=== PATIENT | male | born 1965 | race Native Hawaiian/Other Pacific Islander ===

== ENCOUNTER 2016-07-12 14:23 | Observation (INO) | payer OTHER ==
[~2016-07-12] VITALS: Ht 188 cm; Wt 61.7 kg
[2016-07-12 16:00] VITALS: BP 118/70; TEMP 98.2
[2016-07-12 16:26] LABS: PLATELET COUNT 105 K/uL (142-355)
[2016-07-12 16:41] LABS: POTASSIUM 3.7 mmol/L (3.6-5.2); SODIUM 133 mmol/L (136-145)
[2016-07-12 17:00] VITALS: BP 138/63; TEMP 97.8; Ht 188 cm; Wt 61.7 kg
[2016-07-12 20:00] VITALS: BP 108/65; TEMP 97.9
[2016-07-13] VITALS: BP 136/71; TEMP 98.4
[2016-07-13 04:00] VITALS: BP 114/66; TEMP 98
[2016-07-13 05:55] LABS: PLATELET COUNT 84 K/uL (142-355)
[2016-07-13 05:59] LABS: SODIUM 133 mmol/L (136-145)
[2016-07-13 06:28] VITALS: BP 114/66; TEMP 98
[2016-07-13 12:00] VITALS: BP 135/69; TEMP 97.8
[2016-07-13 16:00] VITALS: BP 142/70; TEMP 98
[2016-07-13 19:11] LABS: POTASSIUM 3.3 mmol/L (3.6-5.2)
[2016-07-13 20:00] VITALS: BP 112/71; TEMP 97.8
[2016-07-14] VITALS: BP 115/73; TEMP 98
[2016-07-14 04:00] VITALS: BP 113/75; TEMP 98.7
[2016-07-14 04:58] LABS: PLATELET COUNT 70 K/uL (142-355)
[2016-07-14 05:06] LABS: POTASSIUM 3.9 mmol/L (3.6-5.2); SODIUM 132 mmol/L (136-145)
[2016-07-14 08:00] VITALS: BP 125/81; TEMP 97.7
--- NOTE | 2016-07-14 15:39 | NUR ---
1535-PT COMPLIANS OF IV HURTING. IV SITE FLUSHES WELL WITH NO SWELLING AND BLOOD ASPIRATED INTO EXTENSION. INFORMED PT THAT IV IS OK BUT HE WANTS IT OUT. SCRIBE NOTIFIED AND STATES OK TO GO AHEAD AND LET HIM GO HOME. IV SITE D/C'D WITH TIP INTACT AND SITE CARE DONE. D/C INSTRUCTIONS GIVEN TO PT AND HE VERBALIZES UNDERSTANDING. PT AMBULATORY OUT WITH NAD. PT REFUSES W/C
== END 2016-07-14 15:39 | disposition home or self-care (01) ==
LOC: MED/SURG 14:23
PROVIDERS: Internal Medicine; ADMIT Nurse Practitioner
DX: K52.89 Other specified noninfective gastroenteritis and colitis (principal); R11.2 Nausea with vomiting, unspecified; A08.8 Other specified intestinal infections; E86.0 Dehydration; Z72.0 Tobacco use; F10.10 Alcohol abuse, uncomplicated; E87.6 Hypokalemia; E83.42 Hypomagnesemia; R00.0 Tachycardia, unspecified; E87.1 Hypo-osmolality and hyponatremia; D47.3 Essential (hemorrhagic) thrombocythemia
CPT/HCPCS: 36415; 80053; 80074; 81000; 82150; 83690; 83735; 84132; 85027; 85610; 87045; 87205; 87328; 87329; 87493; 87798; 87899; 96365; 96366; 96367; 96375; 99220; G0378; G0379; J2060; J3475; J3480; J3490

== ENCOUNTER 2016-07-21 10:13 | Outpatient (CLI) | payer OTHER | END 2016-07-21 19:08 | disposition home or self-care (01) | LOC: RAD 10:13 | DX: R05 Cough (principal); R06.02 Shortness of breath ==

== ENCOUNTER 2016-09-13 19:27 | Emergency (ER) | payer OTHER ==
[~2016-09-13] VITALS: Ht 188 cm; Wt 61.2 kg
[2016-09-13 22:09] LABS: PLATELET COUNT 148 K/uL (142-355)
[2016-09-13 22:17] LABS: POTASSIUM 3.6 mmol/L (3.6-5.2); SODIUM 133 mmol/L (136-145)
[2016-09-14 04:00] VITALS: TEMP 98.7
[2016-09-14 06:45] VITALS: BP 144/84
== END 2016-09-14 14:27 | disposition home or self-care (01) ==
LOC: ED 19:27
PROVIDERS: Specialist
DX: F10.20 Alcohol dependence, uncomplicated (principal); E46 Unspecified protein-calorie malnutrition
CPT/HCPCS: 36415; 80053; 80307; 80320; 81000; 83735; 84100; 85027; 96365; 99284; G0479; J3411; J3475; J3490

== ENCOUNTER 2016-10-22 07:29 | Observation (INO) | payer OTHER ==
[2016-10-22] VITALS (7 sets, daily range): BP systolic 102–139; BP diastolic 70–89; TEMP 97.8–98.2; Ht 188 cm; Wt 60.8 kg
[~2016-10-22] VITALS: Ht 188 cm; Wt 60.8 kg
[2016-10-22 10:45] LABS: PLATELET COUNT 249 K/uL (142-355)
[2016-10-22 10:55] LABS: POTASSIUM 4.1 mmol/L (3.6-5.2); SODIUM 134 mmol/L (136-145)
[2016-10-23] VITALS: BP 108/66; TEMP 98.7
[2016-10-23 04:00] VITALS: BP 112/75; TEMP 98.5
[2016-10-23 05:39] LABS: PLATELET COUNT 243 K/uL (142-355)
[2016-10-23 05:48] LABS: SODIUM 134 mmol/L (136-145)
[2016-10-23 08:00] VITALS: BP 97/62; TEMP 98
[2016-10-23 12:00] VITALS: BP 109/63; TEMP 97.8
[2016-10-23 16:00] VITALS: BP 106/64; TEMP 98
[2016-10-23 20:00] VITALS: BP 104/60; TEMP 98.2
[2016-10-24] VITALS: BP 103/65; TEMP 97.8
[2016-10-24 04:00] VITALS: BP 106/60; TEMP 98.7
[2016-10-24 05:34] LABS: PLATELET COUNT 234 K/uL (142-355)
[2016-10-24 05:50] LABS: POTASSIUM 4.3 mmol/L (3.6-5.2); SODIUM 135 mmol/L (136-145)
[2016-10-24 08:00] VITALS: BP 108/63; TEMP 98
[2016-10-24 12:00] VITALS: BP 108/69; TEMP 97.8
== END 2016-10-24 17:00 | disposition home or self-care (01) ==
LOC: ED 07:29 → MED/SURG 11:24
PROVIDERS: Emergency Medicine; ADMIT Specialist
DX: J44.1 Chronic obstructive pulmonary disease with (acute) exacerbation (principal); Z72.0 Tobacco use; F10.239 Alcohol dependence with withdrawal, unspecified; E83.42 Hypomagnesemia; R73.9 Hyperglycemia, unspecified
CPT/HCPCS: 36415; 36600; 80048; 82805; 83735; 85027; 94640; 94664; 94760; 96365; 96366; 96367; 96374; 96375; 99220; 99284; G0378; J2930

== ENCOUNTER 2016-12-02 06:44 | Emergency (ER) | payer OTHER ==
[~2016-12-02] VITALS: Ht 188 cm; Wt 66.2 kg
[2016-12-02 07:36] LABS: PLATELET COUNT 283 K/uL (142-355)
[2016-12-02 07:45] LABS: POTASSIUM 4.2 mmol/L (3.6-5.2); SODIUM 138 mmol/L (136-145)
[2016-12-02 08:26] VITALS: BP 120/67; TEMP 98.4
== END 2016-12-02 08:42 | disposition home or self-care (01) ==
LOC: ED 06:44
PROVIDERS: Specialist
DX: J44.1 Chronic obstructive pulmonary disease with (acute) exacerbation (principal)
CPT/HCPCS: 36415; 80048; 85027; 96374; 99283; J2930

== ENCOUNTER 2017-02-09 18:24 | Emergency (ER) | payer OTHER ==
[~2017-02-09] VITALS: Ht 188 cm; Wt 64.4 kg
[2017-02-09 18:47] LABS: PLATELET COUNT 247 K/uL (142-355)
[2017-02-09 18:59] LABS: POTASSIUM 4.1 mmol/L (3.6-5.2)
[2017-02-09 20:10] VITALS: BP 120/75; TEMP 97.9
== END 2017-02-09 20:10 | disposition home or self-care (01) ==
LOC: ED 18:24
DX: R06.00 Dyspnea, unspecified (principal); J44.1 Chronic obstructive pulmonary disease with (acute) exacerbation; J98.01 Acute bronchospasm
CPT/HCPCS: 80053; 85027; 93005; 94640; 94664; 99284

== ENCOUNTER 2019-02-13 08:23 | Outpatient (CLI) | payer OTHER ==
[2019-02-13] MEDS ORDERED: ALBUTEROL1.25 MG/3 INH (08:46)
[2019-02-13] MEDS ORDERED: PROAIR HFA INH (08:47)
== END 2019-02-13 08:25 | disposition short-term general hospital (02) ==
LOC: AMB 08:23
DX: R06.02 Shortness of breath (principal); R53.1 Weakness; E86.0 Dehydration; R63.0 Anorexia
CPT/HCPCS: A0425; A0429

== ENCOUNTER 2019-02-13 08:28 | Emergency (ER) | payer OTHER ==
[~2019-02-13] VITALS: Ht 188 cm; Wt 64.4 kg
[2019-02-13 08:28] VITALS: TEMP 97.9
[2019-02-13] MEDS ORDERED: ALBUTEROL1.25 MG/3 INH (08:46)
[2019-02-13] MEDS ORDERED: PROAIR HFA INH (08:47)
[2019-02-13 09:05] LABS: PLATELET COUNT 160 K/uL (142-355)
[2019-02-13 09:34] LABS: POTASSIUM 3.4 mmol/L (3.6-5.2)
[2019-02-13 11:00] VITALS: BP 129/82
== END 2019-02-13 11:00 | disposition home or self-care (01) ==
LOC: ED 08:28
PROVIDERS: Family Medicine
DX: J44.9 Chronic obstructive pulmonary disease, unspecified (principal); R05 Cough; E87.6 Hypokalemia
CPT/HCPCS: 36415; 80053; 85027; 94664; 96374; 99284; J2930

== ENCOUNTER 2019-02-19 08:35 | Emergency (ER) | payer OTHER ==
[~2019-02-19] VITALS: Ht 188 cm; Wt 64.4 kg
[~2019-02-19 08:35] MED LIST: ALBUTEROL1.25 MG/3 INH; PROAIR HFA INH
[2019-02-19 08:38] VITALS: TEMP 98.1
[2019-02-19 08:52] LABS: PLATELET COUNT 114 K/uL (142-355)
[2019-02-19 09:03] LABS: POTASSIUM 3.5 mmol/L (3.6-5.2); SODIUM 132 mmol/L (136-145)
[2019-02-19 12:34] VITALS: BP 137/81
== END 2019-02-19 12:40 | disposition home or self-care (01) ==
LOC: ED 08:35
PROVIDERS: Emergency Medicine
DX: F10.239 Alcohol dependence with withdrawal, unspecified (principal); R94.5 Abnormal results of liver function studies; K21.9 Gastro-esophageal reflux disease without esophagitis; R00.0 Tachycardia, unspecified
CPT/HCPCS: 80053; 80320; 82150; 82550; 83690; 83735; 84484; 85027; 93005; 96360; 96375; 99284; J2405; J3475; J3490

== ENCOUNTER 2019-03-05 07:50 | Observation (INO) | payer OTHER ==
[~2019-03-05] VITALS: Ht 188 cm; Wt 64.0 kg
[2019-03-05] VITALS (9 sets, daily range): BP systolic 116–149; BP diastolic 74–97; TEMP 97.4–98.2; Ht 188 cm; Wt 64.0 kg
[2019-03-05 08:24] LABS: PLATELET COUNT 190 K/uL (142-355)
[2019-03-05 08:28] LABS: POTASSIUM 3.5 mmol/L (3.6-5.2)
[2019-03-06 01:48] LABS: POTASSIUM 3.6 mmol/L (3.6-5.2)
[2019-03-06 04:00] VITALS: BP 144/68; TEMP 97.6
[2019-03-06 08:00] VITALS: BP 113/62; TEMP 97.9
[2019-03-06 12:00] VITALS: BP 110/72; TEMP 98.1
[2019-03-06] MEDS ORDERED: PANTOPRAZOLE 40MG TA PO (15:20)
== END 2019-03-06 16:30 | disposition home or self-care (01) ==
LOC: ED 07:50 → MED/SURG 09:15
PROVIDERS: Emergency Medicine; ADMIT Internal Medicine
DX: R07.89 Other chest pain (principal); E86.0 Dehydration; K86.0 Alcohol-induced chronic pancreatitis; J44.9 Chronic obstructive pulmonary disease, unspecified; K21.9 Gastro-esophageal reflux disease without esophagitis; Z72.0 Tobacco use; E87.8 Other disorders of electrolyte and fluid balance, not elsewhere classified
CPT/HCPCS: 36415; 80048; 80053; 80320; 82150; 82550; 83690; 83735; 83880; 84484; 85027; 93005; 96365; 96366; 96367; 96372; 96375; 99220; 99284; G0378; J1650; J2060; J3411; J3475; J3490; J7120

== ENCOUNTER 2019-10-02 10:37 | Inpatient (IN) | payer OTHER ==
[~2019-10-02] VITALS: Ht 190.5 cm; Wt 62.3 kg
[2019-10-02] VITALS (8 sets, daily range): BP systolic 97–124; BP diastolic 58–94; TEMP 96.8–98.7; Ht 190.5 cm; Wt 62.3 kg
[~2019-10-02 10:37] MED LIST changes: +PANTOPRAZOLE 40MG TA PO
[2019-10-02 11:06] LABS: PLATELET COUNT 99 K/uL (142-355)
[2019-10-02 11:13] LABS: POTASSIUM 2.9 mmol/L (3.6-5.2); SODIUM 130 mmol/L (136-145)
[2019-10-03 00:02] VITALS: BP 103/59; TEMP 97.9
[2019-10-03 03:59] VITALS: BP 105/63; TEMP 98.1
[2019-10-03 06:01] LABS: PLATELET COUNT 50 K/uL (142-355)
[2019-10-03 06:46] LABS: POTASSIUM 3.3 mmol/L (3.6-5.2)
== END 2019-10-03 11:00 | disposition left against medical advice (07) | DRG 894 ==
LOC: ED 10:37 → MED/SURG 15:05
PROVIDERS: Internal Medicine Endocrinology, Diabetes & Metabolism; ADMIT Family Medicine
DX: F10.239 Alcohol dependence with withdrawal, unspecified (principal); E87.1 Hypo-osmolality and hyponatremia; E87.2 Acidosis; N17.9 Acute kidney failure, unspecified; D69.6 Thrombocytopenia, unspecified; E87.6 Hypokalemia; Z72.0 Tobacco use; J44.9 Chronic obstructive pulmonary disease, unspecified; M15.8 Other polyosteoarthritis
CPT/HCPCS: 36415; 80053; 80307; 80320; 81000; 82150; 82550; 83690; 83735; 84484; 85027; 87502; 87651; 93005; 96360; 96365; 96375; 96376; 99284; J1644; J2060; J2560; J3411; J3475; J3490

== ENCOUNTER 2020-03-17 09:01 | Observation (INO) | payer OTHER ==
[2020-03-17] VITALS (7 sets, daily range): BP systolic 121–130; BP diastolic 78–90; TEMP 97.2–99.1; Ht 188 cm; Wt 69.9 kg
[~2020-03-17] VITALS: Ht 188 cm; Wt 69.9 kg
[2020-03-17 09:29] LABS: POTASSIUM 4.1 mmol/L (3.6-5.2); SODIUM 138 mmol/L (136-145)
[2020-03-17 09:47] LABS: PLATELET COUNT 129 K/uL (142-355)
[2020-03-17 10:30] LABS: PARTIAL THROMBOPLASTIN TIME 26.8 SECONDS (24.5-33.6)
[2020-03-17] MEDS ORDERED: MULTI VITAMIN1 TAB PO (13:22)
== END 2020-03-17 21:42 | disposition short-term general hospital (02) ==
LOC: ED 09:01 → MED/SURG 10:30
PROVIDERS: Hospitalist; ADMIT Internal Medicine Endocrinology, Diabetes & Metabolism
DX: I21.4 Non-ST elevation (NSTEMI) myocardial infarction (principal); R07.89 Other chest pain; Z72.0 Tobacco use; F10.229 Alcohol dependence with intoxication, unspecified; Y90.5 Blood alcohol level of 100-119 mg/100 ml
CPT/HCPCS: 80053; 80320; 82550; 83690; 83880; 84484; 85027; 85610; 85730; 93005; 96372; 96374; 96375; 99220; 99284; G0378; J1650; J1885; J1940; J2270; J2920

== ENCOUNTER 2020-06-20 15:42 | Emergency (ER) | payer OTHER ==
[~2020-06-20] VITALS: Ht 188 cm; Wt 63.5 kg
[~2020-06-20 15:42] MED LIST changes: +MULTI VITAMIN1 TAB PO
[2020-06-20 16:59] LABS: PLATELET COUNT 231 K/uL (142-355)
[2020-06-20 17:09] LABS: SODIUM 138 mmol/L (136-145)
[2020-06-20 18:05] VITALS: BP 144/65; TEMP 97.9
== END 2020-06-20 18:05 | disposition home or self-care (01) ==
LOC: ED 15:42
PROVIDERS: Family Medicine
DX: I20.8 Other forms of angina pectoris (principal); Z98.890 Other specified postprocedural states; F17.210 Nicotine dependence, cigarettes, uncomplicated
CPT/HCPCS: 80053; 82550; 83880; 84484; 85027; 93005; 99283

== ENCOUNTER 2020-10-16 17:13 | Observation (INO) | payer OTHER ==
[2020-10-16] VITALS (8 sets, daily range): BP systolic 88–101; BP diastolic 56–65; TEMP 97.7–98; Ht 188 cm; Wt 71.8 kg
[~2020-10-16] VITALS: Ht 188 cm; Wt 71.8 kg
[2020-10-16 17:37] LABS: PLATELET COUNT 239 K/uL (142-355)
[2020-10-16 17:43] LABS: POTASSIUM 3.3 mmol/L (3.6-5.2); SODIUM 136 mmol/L (136-145)
[2020-10-16 17:56] LABS: PARTIAL THROMBOPLASTIN TIME 27.4 SECONDS (24.5-33.6)
[2020-10-17] VITALS (7 sets, daily range): BP systolic 78–102; BP diastolic 42–54; TEMP 97.5–98
[2020-10-17] MEDS ORDERED: ASPIRIN 8181 MG PO (00:10)
[2020-10-17] MEDS ORDERED: CLOP75TA2 PO (00:11)
[2020-10-17] MEDS ORDERED: SPIRONOLACT25 MG PO (00:19)
[2020-10-17] MEDS ORDERED: FURO20TA67 PO (00:20)
[2020-10-17] MEDS ORDERED: FAMO20TA4 PO (00:21)
[2020-10-17] MEDS ORDERED: MAGNESIUM250 M1 PO (00:23)
[2020-10-17] MEDS ORDERED: ROSU10TA PO (00:26)
[2020-10-17 08:51] LABS: PLATELET COUNT 150 K/uL (142-355)
[2020-10-17 08:55] LABS: POTASSIUM 3.9 mmol/L (3.6-5.2)
[2020-10-18 03:46] VITALS: BP 98/42; TEMP 97.6
[2020-10-18 08:00] VITALS: BP 88/46; TEMP 98.2
== END 2020-10-18 12:13 | disposition home or self-care (01) ==
LOC: ED 17:13 → MED/SURG 19:22
PROVIDERS: Hospitalist; ADMIT Internal Medicine Endocrinology, Diabetes & Metabolism; ATTEND Internal Medicine Endocrinology, Diabetes & Metabolism
DX: N17.8 Other acute kidney failure (principal); E86.0 Dehydration; J44.9 Chronic obstructive pulmonary disease, unspecified; K21.9 Gastro-esophageal reflux disease without esophagitis; I25.10 Atherosclerotic heart disease of native coronary artery without angina pectoris; I11.0 Hypertensive heart disease with heart failure; I50.40 Unspecified combined systolic (congestive) and diastolic (congestive) heart failure; I95.89 Other hypotension; R06.09 Other forms of dyspnea; R07.89 Other chest pain
CPT/HCPCS: 36415; 80048; 80053; 82550; 83880; 84484; 85027; 85610; 85730; 87502; 87635; 87651; 93005; 94640; 94664; 94760; 96360; 96365; 96366; 96372; 96374; 96375; 99220; 99284; G0378; J0456; J1650; J2270; J2405; J2930; U0003

== ENCOUNTER 2022-07-29 12:06 | Observation (INO) | payer OTHER ==
[~2022-07-29] VITALS: Ht 190.5 cm; Wt 66.8 kg
[2022-07-29 12:06] VITALS: BP 156/98; TEMP 98.6
[~2022-07-29 12:06] MED LIST changes: +ASPIRIN 8181 MG PO; +CLOP75TA2 PO; +FAMO20TA4 PO; +FURO20TA67 PO; +MAGNESIUM250 M1 PO; +ROSU10TA PO; +SPIRONOLACT25 MG PO
[2022-07-29 12:32] LABS: PLATELET COUNT 159 K/uL (142-355)
[2022-07-29 12:35] LABS: POTASSIUM 3.4 mmol/L (3.6-5.2)
[2022-07-29 12:46] LABS: PARTIAL THROMBOPLASTIN TIME 27.6 SECONDS (24.5-33.6)
[2022-07-29 16:03] VITALS: BP 121/75; TEMP 98; Ht 190.5 cm; Wt 66.8 kg
[2022-07-29 16:06] VITALS: BP 121/75; TEMP 98
[2022-07-29] MEDS ORDERED: CRESTOR20 MG PO (16:55)
[2022-07-29] MEDS ORDERED: PROTONIX20 MG PO (16:55)
[2022-07-29] MEDS ORDERED: METO25TA2 PO (16:56)
[2022-07-29] MEDS ORDERED: LISINOPRIL PO (16:56)
[2022-07-29 20:18] VITALS: BP 128/68; TEMP 97.6
== END 2022-07-30 00:30 | disposition short-term general hospital (02) ==
LOC: ED 12:06 → MED/SURG 14:26
PROVIDERS: ADMIT Emergency Medicine; ATTEND Internal Medicine
DX: I21.4 Non-ST elevation (NSTEMI) myocardial infarction (principal); J44.1 Chronic obstructive pulmonary disease with (acute) exacerbation; I25.10 Atherosclerotic heart disease of native coronary artery without angina pectoris; K21.9 Gastro-esophageal reflux disease without esophagitis; M15.8 Other polyosteoarthritis; R07.89 Other chest pain; Z72.0 Tobacco use; F10.10 Alcohol abuse, uncomplicated; I50.9 Heart failure, unspecified
CPT/HCPCS: 80053; 81002; 82550; 83880; 84484; 85027; 85379; 85610; 85730; 87635; 93005; 96372; 96374; 96375; 99220; 99284; G0378; J1644; J1650; J2270; J2405; J3490; U0003

== ENCOUNTER 2023-01-18 05:18 | Emergency (ER) | payer OTHER ==
[~2023-01-18] VITALS: Ht 190.5 cm; Wt 67.1 kg
[~2023-01-18 05:18] MED LIST changes: +CRESTOR20 MG PO; +LISINOPRIL PO; +METO25TA2 PO; +PROTONIX20 MG PO
[2023-01-18 06:28] LABS: PLATELET COUNT 175 K/uL (142-355)
[2023-01-18 06:29] LABS: PARTIAL THROMBOPLASTIN TIME 24.4 SECONDS (23.9-36.7)
[2023-01-18 06:30] LABS: POTASSIUM 4.3 mmol/L (3.6-5.2); SODIUM 144 mmol/L (136-145)
[2023-01-18] MEDS ORDERED: LISI10TA11 PO (07:45)
[2023-01-18 09:17] VITALS: BP 120/72; TEMP 99.5
== END 2023-01-18 09:17 | disposition short-term general hospital (02) ==
LOC: ED 05:18
PROVIDERS: Family Medicine
DX: K85.90 Acute pancreatitis without necrosis or infection, unspecified (principal); I61.9 Nontraumatic intracerebral hemorrhage, unspecified; K81.9 Cholecystitis, unspecified; F17.210 Nicotine dependence, cigarettes, uncomplicated
CPT/HCPCS: 36415; 80053; 82150; 83690; 84484; 85027; 85610; 85730; 93005; 96361; 96365; 96366; 96375; 96376; 99285; J2270; J2310; J2405; J2543; J3490; Q9963